=== PATIENT | male | born 1950 | race African-American/Black ===

== ENCOUNTER 2019-03-03 22:03 | Inpatient (IN) | payer MEDICARE, OTHER ==
[~2019-03-03] VITALS: Ht 181.6 cm; Wt 95.3 kg
[2019-03-03 20:00] VITALS: BP 125/82
[2019-03-03 22:03] VITALS: BP 125/82
[2019-03-03 22:36] VITALS: BP 125/82
[2019-03-03] MEDS ORDERED: LORAZEPAM 2MG/ML CPJ IV PRN (23:15)
[2019-03-03] MEDS ORDERED: HYDROCODONE/ACETAMINOPHEN 5/325MG TABLET PO PRN (23:15)
[2019-03-03] MEDS ORDERED: ACETAMINOPHEN 325MG TABLET PO PRN (23:15)
[2019-03-03] MEDS ORDERED: CLONIDINE 0.1MG TABLET PO PRN (23:15)
[2019-03-03] MEDS ORDERED: BACLOFEN 20MG TABLET PO PRN (23:15)
[2019-03-03] MEDS ORDERED: MORPHINE SULFATE 2 MG/ML CPJ (NOT FOR IM USE) IV PRN (23:15)
[2019-03-03] MEDS ORDERED: BACLOFEN 10MG TABLET PO PRN (23:30)
[2019-03-03] MEDS ORDERED: AMLO10TA80 MT (23:35)
[2019-03-03] MEDS ORDERED: ATOR40TA70 PO (23:37)
[2019-03-03] MEDS ORDERED: BACL20TA PO (23:39)
[2019-03-03] MEDS ORDERED: VARE1TAB21 PO (23:40)
[2019-03-03] MEDS ORDERED: DOXA2TAB2 PO (23:52)
[2019-03-03] MEDS ORDERED: MELO-106 PO (23:52)
[2019-03-03] MEDS ORDERED: GABA-533 PO (23:52)
[2019-03-03] MEDS ORDERED: FAMO20TA8 PO (23:52)
[2019-03-03] MEDS ORDERED: CLON0.2T PO (23:57)
[2019-03-04] MEDS ORDERED: CLOP75TA33 PO
[2019-03-04] MEDS ORDERED: DESM0.2T4 PO (00:03)
[2019-03-04] MEDS: ZOLPIDEM TARTRATE 5MG TABLET PO PRN (00:12)
[2019-03-04] MEDS ORDERED: BACLOFEN 10MG TABLET PO PRN (02:10)
[2019-03-04] MEDS: HYDRALAZINE HCL 50MG TABLET PO SCH ×3 (06:50→22:00)
[2019-03-04 07:45] LABS: CHLORIDE 101 mEq/L (98-107)
[2019-03-04 07:47] VITALS: BP 122/77
[2019-03-04 07:57] LABS: BASOPHILS % 0.7 % (0.0-2.0); HEMATOCRIT. 45.6 % (42.0-52.0); HEMOGLOBIN. 14.9 g/dL (14.0-18.0); LYMPHOCYTES % 25.1 % (20.0-50.0); MEAN CORPUSCULAR VOLUME 79.2 fL (80.0-94.0); MEAN PLATELET VOLUME 10.3 fl (7.4-10.4); MONOCYTES % 13.7 % (2.0-8.0); NEUTROPHILS % 59.5 % (40.0-76.0); PLATELET 180 x1000/uL (130-400); RED BLOOD CELL COUNT 5.75 mill/uL (4.7-6.1); RED CELL DISTRIBUTION WIDTH 16.2 % (11.6-14.6)
[2019-03-04] MEDS: FUROSEMIDE 40MG/4ML VIAL IVP SCH ×2 (08:53→16:26)
[2019-03-04] MEDS: FAMOTIDINE 20MG TABLET PO SCH (08:53)
[2019-03-04] MEDS: METOPROLOL TARTRATE 50MG TABLET PO SCH ×2 (08:53→20:53)
[2019-03-04] MEDS: AMLODIPINE 10MG TABLET PO SCH (08:54)
[2019-03-04] MEDS: NICOTINE 7MG PATCH TD SCH (08:54)
[2019-03-04] MEDS: DONEPEZIL HCL 10MG TABLET PO SCH (08:54)
[2019-03-04] MEDS: LACTULOSE 20G/30ML UDC PO SCH ×4 (11:01→17:05)
[2019-03-04] MEDS: ONDANSETRON HCL 4MG/2ML INJ IV PRN (11:01)
[2019-03-04] MEDS: LIDOCAINE 5% PATCH TOP SCH (11:30)
[2019-03-04] MEDS ORDERED: NA PHOS,M-B/NA PHOS,DI-BA ENEMA 118ML PR NR (11:30)
[2019-03-04] MEDS: ENOXAPARIN 40MG/0.4ML SYR SUBCUT SCH (11:31)
[2019-03-04] MEDS: METHYL SALICYLATE/MENTHOL CREAM 85GM TOP SCH ×2 (13:23→17:08)
[2019-03-04] MEDS: DOCUSATE SODIUM 100MG CAPSULE PO SCH (16:40)
[2019-03-04 20:00] VITALS: BP 127/73
[2019-03-04] MEDS: DOXAZOSIN MESYLATE 2MG TABLET PO SCH (20:51)
[2019-03-04] MEDS: ATORVASTATIN CALCIUM 40MG TABLET PO SCH (20:51)
[2019-03-04] MEDS ORDERED: MORPHINE SULFATE 2 MG/ML CPJ (NOT FOR IM USE) IV PRN (22:30)
[2019-03-05] MEDS: ZOLPIDEM TARTRATE 5MG TABLET PO PRN ×2 (01:04→23:53)
[2019-03-05] MEDS ORDERED: NA PHOS,M-B/NA PHOS,DI-BA ENEMA 118ML PR PRN (06:00)
[2019-03-05] MEDS: METHYL SALICYLATE/MENTHOL CREAM 85GM TOP SCH ×5 (06:59→23:53)
[2019-03-05] MEDS: HYDRALAZINE HCL 50MG TABLET PO SCH ×3 (07:00→22:00)
[2019-03-05 08:00] VITALS: BP 115/74
[2019-03-05] MEDS: DOCUSATE SODIUM 100MG CAPSULE PO SCH ×2 (08:37→17:19)
[2019-03-05] MEDS: FAMOTIDINE 20MG TABLET PO SCH (08:37)
[2019-03-05] MEDS: FUROSEMIDE 40MG/4ML VIAL IVP SCH ×2 (08:37→17:20)
[2019-03-05] MEDS: METOPROLOL TARTRATE 50MG TABLET PO SCH ×2 (08:38→20:56)
[2019-03-05] MEDS: AMLODIPINE 10MG TABLET PO SCH (08:38)
[2019-03-05] MEDS: DONEPEZIL HCL 10MG TABLET PO SCH (08:38)
[2019-03-05] MEDS: LIDOCAINE 5% PATCH TOP SCH (08:39)
[2019-03-05] MEDS: NICOTINE 7MG PATCH TD SCH (08:39)
[2019-03-05] MEDS: ENOXAPARIN 40MG/0.4ML SYR SUBCUT SCH (08:42)
[2019-03-05] MEDS: ONDANSETRON HCL 4MG/2ML INJ IV PRN ×2 (09:54→21:06)
[2019-03-05] MEDS: OXYCODONE HCL 5MG TABLET PO PRN (12:06)
[2019-03-05 20:00] VITALS: BP 129/76
[2019-03-05] MEDS: ATORVASTATIN CALCIUM 40MG TABLET PO SCH (20:55)
[2019-03-05] MEDS: DOXAZOSIN MESYLATE 2MG TABLET PO SCH (20:55)
[2019-03-05 20:58] LABS: T4 FREE 1.23 ng/dL (0.76-1.46)
[2019-03-05 21:25] LABS: FOLIC ACID (FOLATE) SERUM >20 ng/mL ng/mL (>5.38)
[2019-03-05 21:37] LABS: VITAMIN B12 SERUM 1061 pg/mL (211-911)
[2019-03-06] MEDS: HYDRALAZINE HCL 50MG TABLET PO SCH ×3 (06:00→22:00)
[2019-03-06] MEDS: OXYCODONE HCL 5MG TABLET PO PRN ×3 (06:18→15:31)
[2019-03-06] MEDS: METHYL SALICYLATE/MENTHOL CREAM 85GM TOP SCH ×3 (06:19→17:03)
[2019-03-06 08:00] VITALS: BP 117/62
[2019-03-06] MEDS: ENOXAPARIN 40MG/0.4ML SYR SUBCUT SCH ×2 (09:00→09:29)
[2019-03-06] MEDS: LIDOCAINE 5% PATCH TOP SCH (09:27)
[2019-03-06] MEDS: AMLODIPINE 10MG TABLET PO SCH (09:27)
[2019-03-06] MEDS: METOPROLOL TARTRATE 50MG TABLET PO SCH ×2 (09:27→21:00)
[2019-03-06] MEDS: DOCUSATE SODIUM 100MG CAPSULE PO SCH ×2 (09:27→16:22)
[2019-03-06] MEDS: DONEPEZIL HCL 10MG TABLET PO SCH (09:28)
[2019-03-06] MEDS: FAMOTIDINE 20MG TABLET PO SCH (09:28)
[2019-03-06] MEDS: FUROSEMIDE 40MG/4ML VIAL IVP SCH ×2 (09:28→16:22)
[2019-03-06] MEDS: NICOTINE 7MG PATCH TD SCH (09:37)
[2019-03-06 20:00] VITALS: BP 133/77
[2019-03-06] MEDS: DOXAZOSIN MESYLATE 2MG TABLET PO SCH (20:59)
[2019-03-06] MEDS: ATORVASTATIN CALCIUM 40MG TABLET PO SCH (20:59)
[2019-03-07] MEDS: ZOLPIDEM TARTRATE 5MG TABLET PO PRN (00:33)
[2019-03-07] MEDS: OXYCODONE HCL 5MG TABLET PO PRN (04:35)
[2019-03-07] MEDS: METHYL SALICYLATE/MENTHOL CREAM 85GM TOP SCH ×5 (06:00→23:25)
[2019-03-07 06:12] LABS: CLARITY URINE CLEAR (CLEAR); COLOR URINE YELLOW (YELLOW); KETONES URINE NEGATIVE (NEGATIVE); LEUKOCYTE ESTERASE URINE NEGATIVE (NEGATIVE); NITRITE URINE NEGATIVE (NEGATIVE); OCCULT BLOOD URINE NEGATIVE (NEGATIVE); PROTEIN URINE NEGATIVE (NEGATIVE); SPECIFIC GRAVITY URINE 1.022 (1.005-1.030); UROBILINOGEN URINE 0.2 E.U./dL (0.2-1.0)
[2019-03-07] MEDS: HYDRALAZINE HCL 50MG TABLET PO SCH ×3 (06:18→23:25)
[2019-03-07 07:48] VITALS: BP 141/84
[2019-03-07] MEDS: FUROSEMIDE 40MG/4ML VIAL IVP SCH ×3 (09:00→16:33)
[2019-03-07] MEDS: LIDOCAINE 5% PATCH TOP SCH ×2 (09:00→09:52)
[2019-03-07] MEDS: NICOTINE 7MG PATCH TD SCH ×2 (09:00→09:52)
[2019-03-07] MEDS: ENOXAPARIN 40MG/0.4ML SYR SUBCUT SCH ×2 (09:00→09:52)
[2019-03-07] MEDS: DONEPEZIL HCL 10MG TABLET PO SCH (09:51)
[2019-03-07] MEDS: DOCUSATE SODIUM 100MG CAPSULE PO SCH ×2 (09:51→16:33)
[2019-03-07] MEDS: AMLODIPINE 10MG TABLET PO SCH (09:51)
[2019-03-07] MEDS: FAMOTIDINE 20MG TABLET PO SCH (09:51)
[2019-03-07] MEDS: METOPROLOL TARTRATE 50MG TABLET PO SCH ×2 (09:51→21:00)
[2019-03-07 16:17] LABS: BASOPHILS % 0.9 % (0.0-2.0); EOSINOPHILS % 1.1 % (0.0-5.0); HEMATOCRIT. 41.1 % (42.0-52.0); HEMOGLOBIN. 13.4 g/dL (14.0-18.0); LYMPHOCYTES % 30.8 % (20.0-50.0); MEAN CORPUSCULAR HEMOGLOBIN 25.7 pg (28.0-32.0); MEAN CORPUSCULAR VOLUME 78.7 fL (80.0-94.0); MONOCYTES % 10.6 % (2.0-8.0); NEUTROPHILS % 56.6 % (40.0-76.0); PLATELET 185 x1000/uL (130-400); RED BLOOD CELL COUNT 5.22 mill/uL (4.7-6.1); RED CELL DISTRIBUTION WIDTH 15.9 % (11.6-14.6)
[2019-03-07 16:20] LABS: CHLORIDE 100 mEq/L (98-107)
[2019-03-07 16:28] LABS: PHOSPHORUS 2.7 mg/dL (2.5-4.9)
[2019-03-07 16:29] LABS: TOTAL IRON BINDING CAPACITY 304 ug/dL (250-450)
[2019-03-07 16:35] LABS: PROSTRATE SPECIFIC AG TOTAL 0.91 ng/mL (0.0-4.0)
[2019-03-07 20:00] VITALS: BP 123/78
[2019-03-07] MEDS: ATORVASTATIN CALCIUM 40MG TABLET PO SCH (21:29)
[2019-03-07] MEDS: DOXAZOSIN MESYLATE 2MG TABLET PO SCH (21:29)
[2019-03-08] MEDS: OXYCODONE HCL 5MG TABLET PO PRN ×2 (03:00→09:11)
[2019-03-08] MEDS: METHYL SALICYLATE/MENTHOL CREAM 85GM TOP SCH ×4 (05:02→23:05)
[2019-03-08] MEDS: HYDRALAZINE HCL 50MG TABLET PO SCH ×4 (05:26→21:23)
[2019-03-08 07:00] VITALS: BP 123/97
[2019-03-08] MEDS: FUROSEMIDE 40MG/4ML VIAL IVP SCH (09:08)
[2019-03-08] MEDS: DOCUSATE SODIUM 100MG CAPSULE PO SCH ×2 (09:08→16:49)
[2019-03-08] MEDS: METOPROLOL TARTRATE 50MG TABLET PO SCH ×2 (09:08→21:00)
[2019-03-08] MEDS: AMLODIPINE 10MG TABLET PO SCH (09:08)
[2019-03-08] MEDS: DONEPEZIL HCL 10MG TABLET PO SCH (09:09)
[2019-03-08] MEDS: ENOXAPARIN 40MG/0.4ML SYR SUBCUT SCH (09:09)
[2019-03-08] MEDS: FAMOTIDINE 20MG TABLET PO SCH (09:09)
[2019-03-08] MEDS: LIDOCAINE 5% PATCH TOP SCH (09:10)
[2019-03-08] MEDS: NICOTINE 7MG PATCH TD SCH (09:12)
[2019-03-08 13:10] VITALS: BP 116/61
[2019-03-08] MEDS ORDERED: BISACODYL 5MG TABLET PO PRN (17:00)
[2019-03-08 20:00] VITALS: BP 127/79
[2019-03-08] MEDS: ATORVASTATIN CALCIUM 40MG TABLET PO SCH (21:22)
[2019-03-08] MEDS: DOXAZOSIN MESYLATE 2MG TABLET PO SCH (21:23)
[2019-03-08] MEDS ORDERED: ZOLPIDEM TARTRATE 5MG TABLET PO PRN (23:45)
[2019-03-09] MEDS: METHYL SALICYLATE/MENTHOL CREAM 85GM TOP SCH ×3 (05:48→16:37)
[2019-03-09] MEDS: HYDRALAZINE HCL 50MG TABLET PO SCH ×3 (06:00→21:57)
[2019-03-09 08:00] VITALS: BP 129/74
[2019-03-09] MEDS: AMLODIPINE 10MG TABLET PO SCH (09:00)
[2019-03-09] MEDS: ENOXAPARIN 40MG/0.4ML SYR SUBCUT SCH (09:00)
[2019-03-09] MEDS: METOPROLOL TARTRATE 50MG TABLET PO SCH ×2 (11:25→21:00)
[2019-03-09] MEDS: DOCUSATE SODIUM 100MG CAPSULE PO SCH ×2 (11:25→16:41)
[2019-03-09] MEDS: DONEPEZIL HCL 10MG TABLET PO SCH (11:25)
[2019-03-09] MEDS: FAMOTIDINE 20MG TABLET PO SCH (11:26)
[2019-03-09] MEDS: NICOTINE 7MG PATCH TD SCH (11:30)
[2019-03-09] MEDS: LIDOCAINE 5% PATCH TOP SCH (11:31)
[2019-03-09] MEDS: OXYCODONE HCL 5MG TABLET PO PRN (14:30)
[2019-03-09 20:00] VITALS: BP 111/72
[2019-03-09] MEDS: DOXAZOSIN MESYLATE 2MG TABLET PO SCH (21:00)
[2019-03-09] MEDS: ATORVASTATIN CALCIUM 40MG TABLET PO SCH (21:57)
[2019-03-10] MEDS: HYDRALAZINE HCL 50MG TABLET PO SCH (06:00)
[2019-03-10] MEDS: METHYL SALICYLATE/MENTHOL CREAM 85GM TOP SCH ×3 (06:00→12:00)
[2019-03-10] MEDS: OXYCODONE HCL 5MG TABLET PO PRN (06:02)
[2019-03-10 08:47] VITALS: BP 142/80
[2019-03-10] MEDS: AMLODIPINE 10MG TABLET PO SCH (08:58)
[2019-03-10] MEDS: DONEPEZIL HCL 10MG TABLET PO SCH (08:58)
[2019-03-10] MEDS: ENOXAPARIN 40MG/0.4ML SYR SUBCUT SCH (08:59)
[2019-03-10] MEDS: FAMOTIDINE 20MG TABLET PO SCH (08:59)
[2019-03-10] MEDS: METOPROLOL TARTRATE 50MG TABLET PO SCH (08:59)
[2019-03-10] MEDS: DOCUSATE SODIUM 100MG CAPSULE PO SCH (08:59)
[2019-03-10] MEDS: LIDOCAINE 5% PATCH TOP SCH (09:02)
[2019-03-10] MEDS: NICOTINE 7MG PATCH TD SCH (09:02)
[2019-03-10 10:41] VITALS: BP 142/80
[2019-03-12 04:07] LABS: 25-HYDROXY VITAMIN D3 28 ng/mL (.)
== END 2019-03-10 13:25 | disposition home health service (06) | DRG 91 ==
PROVIDERS: ADMIT Physical Medicine & Rehabilitation Spinal Cord Injury Medicine; ATTEND Internal Medicine Nephrology
PROC: 4A10X4Z Monitoring of Central Nervous Electrical Activity, External Approach (ICD-10-PCS; principal; 2019-03-07)
DX: G92 Toxic encephalopathy (principal); I50.33 Acute on chronic diastolic (congestive) heart failure; N17.9 Acute kidney failure, unspecified; J98.11 Atelectasis; M62.82 Rhabdomyolysis; N39.0 Urinary tract infection, site not specified; R55 Syncope and collapse; I11.0 Hypertensive heart disease with heart failure; E78.00 Pure hypercholesterolemia, unspecified; G89.4 Chronic pain syndrome; E78.5 Hyperlipidemia, unspecified; F17.210 Nicotine dependence, cigarettes, uncomplicated; H54.61 Unqualified visual loss, right eye, normal vision left eye; K59.00 Constipation, unspecified; M21.372 Foot drop, left foot; Z96.659 Presence of unspecified artificial knee joint; M19.90 Unspecified osteoarthritis, unspecified site; R41.89 Other symptoms and signs involving cognitive functions and awareness; E11.65 Type 2 diabetes mellitus with hyperglycemia; R53.81 Other malaise; R26.9 Unspecified abnormalities of gait and mobility; M54.5 Low back pain; M24.575 Contracture, left foot; Z82.49 Family history of ischemic heart disease and other diseases of the circulatory system; Z86.73 Personal history of transient ischemic attack (TIA), and cerebral infarction without residual deficits; Z97.0 Presence of artificial eye
CPT/HCPCS: 36415; 80048; 81003; 82140; 82306; 82607; 82728; 82746; 83036; 83540; 83550; 83735; 83880; 84100; 84134; 84153; 84439; 84443; 84481; 92523; 93970; 97110; 97112; 97116; 97162; 97166; 97530; 97535; J1650; J1940; J2270; J2405; G0103